=== PATIENT | female | born 2000 | race African-American/Black ===

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

== ENCOUNTER 2020-07-30 09:40 | Emergency (ER) | payer MEDICAID ==
[~2020-07-30] VITALS: Ht 162.6 cm; Wt 71.2 kg
[2020-07-30 09:45] VITALS: Ht 162.6 cm; Wt 71.2 kg
[2020-07-30] MEDS ORDERED: NAPROXEN375 MG PO (10:19)
[2020-07-30] MEDS ORDERED: ULTRAM50 MG PO (10:19)
[2020-07-30 10:55] VITALS: BP 129/70
== END 2020-07-30 10:55 | disposition home or self-care (01) ==
LOC: ED 09:40
DX: M72.2 Plantar fascial fibromatosis (principal); Z98.890 Other specified postprocedural states